=== PATIENT | female | born 1990 | race African-American/Black ===

== ENCOUNTER 2017-06-13 08:17 | Emergency (ER) | payer MEDICAID ==
[~2017-06-13] VITALS: Ht 165.1 cm; Wt 55.6 kg
[2017-06-13 08:20] VITALS: BP 130/89
[2017-06-13] MEDS ORDERED: IBUPROFEN 200 MG TABLET PO ONE (09:00)
[2017-06-13] MEDS ORDERED: IBUPROFEN 200 MG TABLET ONE (09:19)
[2017-06-13 09:24] LABS: ASPARTATE AMINO TRANSFERASE 12 U/L (15-37); BLOOD UREA NITROGEN 8 mg/dL (7-18)
== END 2017-06-13 10:43 | disposition home or self-care (01) ==
LOC: ED 10:39
DX: M77.9 Enthesopathy, unspecified (principal)
CPT/HCPCS: 29125; 36415; 80053; 85025; 99285